=== PATIENT | female | born 1990 | race Caucasian/White ===

== ENCOUNTER 2018-11-17 19:25 | Emergency (ER) | payer OTHER ==
[~2018-11-17] VITALS: Ht 162.6 cm; Wt 86.2 kg
[2018-11-17] MEDS ORDERED: NEURONTIN100 MG PO (19:39)
[2018-11-17 19:57] LABS: URINE BLOOD NEGATIVE (Negative); URINE CLARITY CLEAR; URINE COLOR YELLOW; URINE GLUCOSE-RANDOM* NEGATIVE (Negative); URINE KETONES 2+ (Negative); URINE LEUKOCYTES-REFLEX NEGATIVE (Negative); URINE NITRITE-REFLEX NEGATIVE (Negative); URINE PROTEIN (DIPSTICK) TRACE (Negative); URINE SPECIFIC GRAVITY >= 1.030 (1.005-1.035)
[2018-11-17 20:01] LABS: ICTOTEST (BILI CONFIRMATORY) Negative (Negative); URINE BILIRUBIN NEGATIVE (Negative)
[2018-11-17 20:20] LABS: ABSOLUTE NEUTROPHILS 6.6 thou/uL (1.4-8.2); BASOPHILS 0.3 % (0.0-2.0); EOSINOPHILS 0.4 % (0.0-3.0); HEMATOCRIT 38.5 % (37.0-47.0); HEMOGLOBIN 13.2 gm/dL (12.0-15.0); LYMPHOCYTES 22.7 % (24.0-44.0); MCH 30.5 pg (26.0-34.0); MCHC 34.2 g/dL (28.0-37.0); MCV 89.4 fL (80.0-100.0); MONOCYTES 5.8 % (1.0-8.0); PLATELET COUNT 310 thou/uL (150-400); POLYS 70.8 % (36.0-66.0); RBC 4.31 mil/uL (4.20-5.00); RDW 13.5 % (10.5-14.5); WBC 9.4 thou/uL (4.0-11.0)
[2018-11-17 20:29] LABS: CALCIUM 9.5 mg/dL (8.5-10.1); CREATININE 0.8 mg/dL (0.6-1.0); POTASSIUM 3.2 mmol/L (3.5-5.1)
[2018-11-17 20:35] LABS: ALBUMIN 3.7 g/dL (3.4-5.0); TOTAL BILIRUBIN 0.7 mg/dL (<0.1-1.0); TOTAL PROTEIN 7.6 g/dL (6.4-8.2)
[2018-11-17] MEDS ORDERED: ZOFRAN ODT4 MG PO (22:21)
[2018-11-17] MEDS ORDERED: BENTYL 20 MG TA20 M1 PO (22:21)
[2018-11-17] MEDS ORDERED: CIPROFLOXACIN500 M1 PO (22:24)
[2018-11-17 22:31] VITALS: BP 98/64
== END 2018-11-17 22:32 | disposition home or self-care (01) ==
LOC: ER 19:25
PROVIDERS: Emergency Medicine
DX: R10.13 Epigastric pain (principal)